=== PATIENT | female | born 1960 | race Caucasian/White ===

== ENCOUNTER 2024-05-24 09:53 | Outpatient (RCR) | payer MEDICARE, SELFPAY ==
[2024-04-28 09:45] LABS: Glucose - Point of Care 119 mg/dl (70-99)
[2024-04-28 10:22] LABS: Glucose - Point of Care 123 mg/dl (70-99)
[2024-04-30 09:18] LABS: Glucose - Point of Care 202 mg/dl (70-99)
[2024-04-30 10:02] LABS: Glucose - Point of Care 179 mg/dl (70-99)
[2024-05-03 09:22] LABS: Glucose - Point of Care 213 mg/dl (70-99)
[2024-05-03 10:18] LABS: Glucose - Point of Care 215 mg/dl (70-99)
[2024-05-07 09:22] LABS: Glucose - Point of Care 206 mg/dl (70-99)
[2024-05-07 10:10] LABS: Glucose - Point of Care 201 mg/dl (70-99)
[2024-05-10 09:32] LABS: Glucose - Point of Care 166 mg/dl (70-99)
[2024-05-10 10:27] LABS: Glucose - Point of Care 197 mg/dl (70-99)
[2024-05-12 09:18] LABS: Glucose - Point of Care 152 mg/dl (70-99)
[2024-05-12 10:08] LABS: Glucose - Point of Care 214 mg/dl (70-99)
== END 2024-05-24 23:59 | disposition home or self-care (01) ==
LOC: CRHB 09:53
PROVIDERS: ATTENDING PHYSICIAN Family Medicine
DX: I25.10 Atherosclerotic heart disease of native coronary artery without angina pectoris (principal); Z95.5 Presence of coronary angioplasty implant and graft
CPT/HCPCS: 82962; G0422; G0423

== ENCOUNTER 2024-06-23 09:47 | Outpatient (RCR) | payer MEDICARE, SELFPAY | END 2024-06-23 23:59 | disposition home or self-care (01) | LOC: CRHB 09:47 | PROVIDERS: ATTENDING PHYSICIAN Family Medicine | DX: I25.10 Atherosclerotic heart disease of native coronary artery without angina pectoris (principal); Z95.5 Presence of coronary angioplasty implant and graft | CPT/HCPCS: G0422; G0423 ==

== ENCOUNTER 2024-07-07 10:08 | Outpatient (RCR) | payer MEDICARE, SELFPAY | END 2024-07-07 23:59 | disposition home or self-care (01) | LOC: CRHB 10:08 | PROVIDERS: ATTENDING PHYSICIAN Family Medicine | DX: I25.10 Atherosclerotic heart disease of native coronary artery without angina pectoris (principal); Z95.5 Presence of coronary angioplasty implant and graft | CPT/HCPCS: G0422; G0423 ==

== ENCOUNTER 2024-08-23 13:37 | Outpatient (RCR) | payer MEDICARE, SELFPAY | END 2024-08-23 23:59 | disposition home or self-care (01) | LOC: CRHB 13:37 | PROVIDERS: ATTENDING PHYSICIAN Family Medicine | DX: I25.10 Atherosclerotic heart disease of native coronary artery without angina pectoris (principal); Z95.5 Presence of coronary angioplasty implant and graft | CPT/HCPCS: G0422; G0423 ==

== ENCOUNTER → 2025-03-11 10:27 | Outpatient (REF) | payer OTHER, SELFPAY | LOC: RAD 10:27 | PROVIDERS: ATTENDING PHYSICIAN Surgery Vascular Surgery; REFERRING PHYSICIAN Family Medicine | DX: I71.00 Dissection of unspecified site of aorta (principal) | CPT/HCPCS: 74174; Q9967 ==